=== PATIENT | female | born 1960 | race Caucasian/White ===

== ENCOUNTER 2018-09-02 19:38 | Emergency (ER) | payer OTHER ==
[~2018-09-02] VITALS: Ht 154.9 cm; Wt 51.3 kg
[2018-09-02 20:03] VITALS: Ht 154.9 cm; Wt 51.3 kg
[2018-09-02 21:10] LABS: UA SPECIFIC GRAVITY 1.015 (1.005-1.035); microscopic required? YES; urine erythrocyte 3+ (NEGATIVE)
[2018-09-02 21:27] VITALS: BP 136/83
== END 2018-09-02 21:28 | disposition home or self-care (01) ==
LOC: ED 19:38
PROVIDERS: Emergency Medicine
DX: N39.0 Urinary tract infection, site not specified (principal); R03.0 Elevated blood-pressure reading, without diagnosis of hypertension

== ENCOUNTER 2019-03-10 15:06 | Emergency (ER) | payer OTHER ==
[~2019-03-10] VITALS: Ht 149.9 cm; Wt 51.7 kg
[2019-03-10 15:30] VITALS: Ht 149.9 cm; Wt 51.7 kg
[2019-03-10 17:25] VITALS: BP 133/86
== END 2019-03-10 17:25 | disposition home or self-care (01) ==
LOC: ED 15:06
DX: K04.7 Periapical abscess without sinus (principal); M79.7 Fibromyalgia; Z90.49 Acquired absence of other specified parts of digestive tract; Z98.890 Other specified postprocedural states
CPT/HCPCS: J0690